=== PATIENT | male | born 1975 | race Caucasian/White ===

== ENCOUNTER 2016-04-01 08:31 | Emergency (ER) | payer OTHER ==
[~2016-04-01] VITALS: Ht 172.7 cm; Wt 93.7 kg
[2016-04-01 09:20] LABS: EOSINOPHIL (%) 4.8 % (0-5); EOSINOPHIL COUNT 0.2 K/uL (0-0.3); HEMATOCRIT 46.2 % (38.0-50.0); IMMATURE GRANULOCYTE (%) 0.2 % (0.0-0.7); IMMATURE GRANULOCYTE COUNT 0.1 K/uL; LYMPHOCYTE COUNT 2.1 K/uL (1.0-2.8); MCHC 35.9 G/DL (30.0-36.0); MCV 89.2 FL (86-99); MEAN PLAT.VOLUME 9.9 uM^3 (9.0-12.4); MONOCYTE (%) 9.5 % (3-12); MONOCYTE COUNT 0.5 K/uL (0-0.8); NEUTROPHIL (%) 43.9 % (45-76); NEUTROPHIL COUNT 2.2 K/uL (1.8-6.4); PLATELET COUNT 213 K/uL (156-360); RBC DIS.WIDTH-CV 13.5 % (11.8-14.6); RBC DIS.WIDTH-SD 43.5 % (39-53); RED BLOOD COUNT 5.18 M/uL (4.00-5.50)
[2016-04-01 09:31] LABS: CHLORIDE 107 mEq/L (99-109); POTASSIUM 4.2 mEq/L (3.7-5.4)
[2016-04-01 09:32] LABS: SODIUM 142 mEq/L (136-147)
[2016-04-01 09:33] LABS: GLUCOSE 104 mg/dL (70-99)
[2016-04-01 09:35] LABS: ANION GAP 16 MEQ/L (2-14)
[2016-04-01 09:37] LABS: GFR ESTIMATE (CALCULATED) > 59 mL/min/
[2016-04-01 09:38] LABS: UREA NITROGEN (BUN) 8 mg/dL (9-23)
[2016-04-01 10:15] LABS: ADD MIUA? NO; BILIRUBIN NEGATIVE; BLOOD NEGATIVE; COLOR YELLOW ((YELLOW)); GLUCOSE (STRIP) NEGATIVE; KETONES NEGATIVE; LEUKOCYTES NEGATIVE; NITRITE NEGATIVE; PROTEIN (STRIP) NEGATIVE; SPECIFIC GRAVITY 1.023 (1.000-1.030); UROBILINOGEN 0.2 MG/DL (0.2-1.0)
[2016-04-01] MEDS ORDERED: NORVASC5 MG PO (11:16)
[2016-04-01 11:35] VITALS: BP 131/90
== END 2016-04-01 11:36 | disposition home or self-care (01) ==
LOC: EME 08:31
PROVIDERS: Emergency Medicine
DX: I10 Essential (primary) hypertension (principal); F17.200 Nicotine dependence, unspecified, uncomplicated
CPT/HCPCS: 71010; 80048; 81003; 85025; 93005; 99281; 99285

== ENCOUNTER 2016-04-05 10:42 | Emergency (ER) | payer OTHER ==
[~2016-04-05] VITALS: Ht 170.2 cm; Wt 94.0 kg
[~2016-04-05 10:42] MED LIST: NORVASC5 MG PO
[2016-04-05 12:04] LABS: HEMATOCRIT 46.5 % (38.0-50.0); MCH 31.8 PG (29.0-34.0); MCHC 35.1 G/DL (30.0-36.0); MCV 90.8 FL (86-99); MEAN PLAT.VOLUME 9.8 uM^3 (9.0-12.4); PLATELET COUNT 217 K/uL (156-360); RBC DIS.WIDTH-CV 13.7 % (11.8-14.6); RBC DIS.WIDTH-SD 44.8 % (39-53); RED BLOOD COUNT 5.12 M/uL (4.00-5.50); WHITE BLOOD COUNT 5.2 K/uL (4.1-10.2)
[2016-04-05 12:16] LABS: CHLORIDE 106 mEq/L (99-109); POTASSIUM 4.2 mEq/L (3.7-5.4); SODIUM 142 mEq/L (136-147)
[2016-04-05 12:18] LABS: GLUCOSE 132 mg/dL (70-99)
[2016-04-05 12:19] LABS: ANION GAP 15 MEQ/L (2-14)
[2016-04-05 12:22] LABS: GFR ESTIMATE (CALCULATED) > 59 mL/min/
[2016-04-05 12:23] LABS: UREA NITROGEN (BUN) 7 mg/dL (9-23)
[2016-04-05 12:25] LABS: TROP-I INTERPRETATION NEGATIVE; TROPONIN-I < 0.01 ng/mL (0.0-0.30)
[2016-04-05 14:39] VITALS: BP 131/89
== END 2016-04-05 14:41 | disposition home or self-care (01) ==
LOC: EME 10:42
DX: I10 Essential (primary) hypertension (principal); F17.200 Nicotine dependence, unspecified, uncomplicated
CPT/HCPCS: 71020; 80048; 84484; 85027; 93005; 99281; 99284